=== PATIENT | male | born 1975 | race Two or more races ===

== ENCOUNTER 2017-10-11 15:54 | Emergency (ER) | payer MEDICAID ==
[~2017-10-11] VITALS: Ht 172.7 cm; Wt 77.1 kg
[~2017-10-11 15:54] MED LIST: ACET-929; DIAZ10TA PO; DIAZ5TAB3
[2017-10-11 16:06] VITALS: BP 125/77
[2017-10-11] MEDS ORDERED: KETOROLAC TROMETH 60MG/2ML VIAL IM ONE (17:00)
[2017-10-11] MEDS ORDERED: METHOCARBAMOL 500 MG TAB PO ONE (17:00)
== END 2017-10-11 17:33 | disposition home or self-care (01) ==
LOC: ER 16:01
DX: G89.29 Other chronic pain (principal); M54.42 Lumbago with sciatica, left side; F17.210 Nicotine dependence, cigarettes, uncomplicated
CPT/HCPCS: 96372; 99283; J1885

== ENCOUNTER 2018-07-25 14:31 | Emergency (ER) | payer MEDICAID ==
[~2018-07-25] VITALS: Ht 172.7 cm; Wt 73.5 kg
[2018-07-25 18:46] VITALS: BP 137/88
[2018-07-25] MEDS ORDERED: KETOROLAC TROMETH 60MG/2ML VIAL IM ONE (20:00)
[2018-07-25] MEDS ORDERED: METHOCARBAMOL 500 MG TAB PO ONE (20:30)
== END 2018-07-25 20:36 | disposition home or self-care (01) ==
LOC: ER 14:36
DX: L72.8 Other follicular cysts of the skin and subcutaneous tissue (principal); M54.5 Low back pain; G89.29 Other chronic pain; F17.210 Nicotine dependence, cigarettes, uncomplicated; Z79.899 Other long term (current) drug therapy
CPT/HCPCS: 96372; 99283; J1885